=== PATIENT | male | born 1970 | race Caucasian/White ===

== ENCOUNTER 2021-12-30 08:04 | Outpatient (CLI) | payer OTHER, MEDICARE | END 2021-12-30 08:05 | disposition home or self-care (01) | LOC: CSHMRI 08:04 | PROVIDERS: ATTEND Neurological Surgery | DX: S06.351D Traumatic hemorrhage of left cerebrum with loss of consciousness of 30 minutes or less, subsequent encounter (principal) | CPT/HCPCS: 70551 ==